=== PATIENT | female | born 1990 | race Caucasian/White ===

== ENCOUNTER 2016-08-28 03:48 | Emergency (ER) | payer MEDICAID ==
[~2016-08-28] VITALS: Ht 162.6 cm; Wt 95.5 kg
[2016-08-28 03:54] VITALS: BP 132/80
== END 2016-08-28 05:00 | disposition left against medical advice (07) ==
LOC: ER 04:10
DX: Z53.21 Procedure and treatment not carried out due to patient leaving prior to being seen by health care provider (principal)